=== PATIENT | female | born 1945 | race Caucasian/White ===

== ENCOUNTER 2017-03-15 18:43 | Inpatient (IN) ==
[2017-03-15 19:08] LABS: MANUAL DIFF NEEDED? NO
[2017-03-15 19:09] LABS: BASO% 0.6 % (0.0-0.8); EOS# 0.14 X1000 (0.0-0.7); EOS% 2.2 % (0.0-10.0); HEMATOCRIT 44.2 % (37.0-47.0); HEMOGLOBIN 15.1 g/dL (12.0-16.0); IMM GRAN# 0.02 X1000 (0.0-0.04); IMM GRAN% 0.3 % (0.0-0.5); LYMPH# 1.46 X1000 (1.2-3.4); LYMPH% 22.6 % (20.5-51.1); MCH 33.5 PG (27-31); MCHC 34.2 g/dL (33-37); MONO# 0.85 X1000 (0.11-0.59); MONO% 13.2 % (1.7-9.3); MPV 9.5 FL (7.4-10.4); NEUT% 61.1 % (42.2-75.2); PLT 232 X1000 (130-400); RBC 4.51 XMIL (4.2-5.4)
[2017-03-15] MEDS ORDERED: MORPHINE IV ONE (19:21)
[2017-03-15] MEDS ORDERED: ZOFRAN IV ONE (19:22)
[2017-03-15 19:28] LABS: AGAP 15; ALKALINE PHOSPHATASE 100 U/L (32-104); AMYLASE 45 U/L (20-200); BUN 17 mg/dL (8-22); CALCIUM 9.5 mg/dL (8.8-10.2); CHLORIDE 100 mmol/L (98-107); CK PROFILE 54 U/L (24-173); COSMO 284; GOT 25 U/L (10-30); GPT 18 U/L (10-36); LIPASE 36 U/L (13-60); SODIUM 141 mmol/L (136-145); TCO2 26 mmol/L (25-35); TOTAL BILIRUBIN 0.41 mg/dL (0.20-1.00); TOTAL PROTEIN 7.1 g/dL (6.3-8.3)
[2017-03-15 20:22] LABS: ALLEN TEST YES; BE 4.5 mmoll (-3.0-3.0); BLOOD TYPE ARTERIAL; DRAW SITE R RADIAL; O2(CT) 18.7 mL/dL (15.0-23.0); PCO2(98.6) 31 mmHg (35-45); PO2(98.6) 83 mmHg (60-100); SAMPLE BLOOD; SAO2 98.7 % (95.0-100.0); THB 13.8 g/dL (11.5-17.4); pH(98.6) 7.54 (7.35-7.45)
[2017-03-15 20:23] LABS: MODALITY CANNULA
--- NOTE | 2017-03-15 20:23 | Diag Imaging Result Doc PS360 ---
CT ABD/PELVIS W/ IV CONT ONLY - 03/15/2017 INDICATION: acute abdomen TECHNIQUE: A CT dose reduction protocol was used. COMPARISON: None FINDINGS: The lung bases are clear. There is a moderately large hiatal hernia behind the heart. There are pacemaker leads in the heart. The liver, gallbladder, spleen, pancreas, adrenals, and kidneys are normal. There is a right inguinal hernia containing a few loops of small bowel. These are somewhat dilated and there is some solid feces in the small bowel at this point. No significant bowel wall thickening or inflammation. There is mild constipation in the proximal colon. Normal appendix. No free air or free fluid. Urinary bladder and rectum are normal. There are moderate degenerative changes of the spine. No acute or suspicious bony lesion. IMPRESSION: 1. Right inguinal hernia containing a few loops of small bowel that are slightly abnormally dilated with some feces consistent with delayed transit, indicating partial obstruction at this time. No full blown small bowel obstruction overall. 2. Constipation. 3. Rather large hiatal hernia. Electronically signed by Jabier Dinh 03/15/2017 8:21 PM
--- NOTE | 2017-03-15 20:27 | Diag Imaging Result Doc PS360 ---
CHEST-PORTABLE - 03/15/2017 INDICATION: abd pain TECHNIQUE: COMPARISON: 10/10/2012 FINDINGS: Stable left-sided pacemaker. The lungs are clear. Heart size and pulmonary vascularity is normal. No pneumothorax or pleural effusion. IMPRESSION: No acute disease or change from prior. Electronically signed by Jabier Dinh 03/15/2017 8:25 PM
[2017-03-15 20:59] LABS: URINE MICRO REVIEW NEEDED? NO; URINE SOURCE CLEAN CATCH
[2017-03-15 21:06] LABS: BILIRUBIN URINE NEGATIVE (NEGATIVE); BLOOD URINE NEGATIVE (NEGATIVE); COLOR STRAW; GLUCOSE URINE NEGATIVE (NEGATIVE); LEUKOCYTES URINE SMALL (NEGATIVE); NITRITE URINE NEGATIVE (NEGATIVE); PROTEIN URINE NEGATIVE (NEGATIVE); SP GRAVITY URINE 1.018; TURBIDITY URINE CLEAR (CLEAR); UROBILINOGEN URINE NORMAL (NORMAL)
[2017-03-15 21:07] LABS: UR EPITHELIAL CELLS <10 /HPF (<10); URINE BACTERIA NEGATIVE /HPF; URINE CULTURE NEEDED? YES; URINE RBC <10 /HPF (<10)
[2017-03-15] MEDS ORDERED: NS 500 ML IV ONE (22:18)
[2017-03-15] MEDS ORDERED: NS 1,000 ML IV ONE (22:31)
[2017-03-15] MEDS ORDERED: FLEET ENEMA PR ONE (22:31)
[2017-03-15] MEDS ORDERED: TYLENOL PO PRN (22:31)
[2017-03-15] MEDS ORDERED: SODIUM CHLORIDE 0.9% INJ SCH (22:31)
[2017-03-15] MEDS ORDERED: ZOFRAN IV PRN (22:31)
[2017-03-15] MEDS: LOVENOX SUBQ SCH (23:08)
[2017-03-15] MEDS: DULCOLAX PR SCH (23:08)
[2017-03-15] MEDS: PROTONIX IV SCH (23:08)
[2017-03-16] MEDS: NS 1,000 ML IV SCH ×4 (01:25→20:18)
[2017-03-16] MEDS: MORPHINE IV PRN ×4 (01:36→19:26)
[2017-03-16] MEDS: DULCOLAX PR SCH ×2 (09:12→20:19)
--- NOTE | 2017-03-16 10:33 | Diag Imaging Result Doc PS360 ---
ABDOMEN FLAT/UPRIGHT - 03/16/2017 INDICATION: sbo TECHNIQUE: Two views COMPARISON: CT from yesterday FINDINGS: Stable pacemaker leads in the heart. Stable mild right hemidiaphragm elevation. Stable constipation primarily throughout the descending colon. No bowel obstruction or free air. There is excreted contrast in the kidneys and urinary bladder. IMPRESSION: Constipation. No acute disease. Electronically signed by Jabier Dinh 03/16/2017 10:30 AM
[2017-03-16] MEDS: PROTONIX IV SCH (20:18)
[2017-03-16] MEDS: LOVENOX SUBQ SCH (20:18)
[2017-03-17] MEDS: NS 1,000 ML IV SCH ×3 (00:18→15:16)
[2017-03-17] MEDS: LOVENOX SUBQ SCH ×2 (00:18→22:39)
[2017-03-17] MEDS: PROTONIX IV SCH (00:19)
[2017-03-17] MEDS: DULCOLAX PR SCH ×2 (11:44→22:37)
[2017-03-17] MEDS ORDERED: NORCO-5 PO PRN (16:07)
[2017-03-17] MEDS ORDERED: MORPHINE IM ONE (16:07)
[2017-03-17] MEDS ORDERED: ZOFRAN PO PRN (17:56)
[2017-03-18] MEDS: PROTONIX PO SCH ×2 (05:54→08:54)
[2017-03-18 06:44] LABS: AGAP 10; ALBUMIN 3.3 g/dL (3.5-5.0); ALKALINE PHOSPHATASE 71 U/L (32-104); BUN 11 mg/dL (8-22); CALCIUM 9.3 mg/dL (8.8-10.2); CHLORIDE 111 mmol/L (98-107); COSMO 288; GOT 19 U/L (10-30); GPT 15 U/L (10-36); MAGNESIUM 1.9 mg/dL (1.5-2.7); SODIUM 145 mmol/L (136-145); TCO2 24 mmol/L (25-35); TOTAL BILIRUBIN 0.69 mg/dL (0.20-1.00); TOTAL PROTEIN 5.8 g/dL (6.3-8.3)
[2017-03-18 06:59] LABS: FREE T4 1.16 ng/dL (0.93-1.70)
[2017-03-18] MEDS: DULCOLAX PR SCH (08:54)
[2017-03-18 11:23] VITALS: BP 156/66
[2017-03-18] MEDS ORDERED: POTASSIUM CHLORIDE 20% LIQUID PO ONE (12:46)
== END 2017-03-18 14:30 | disposition home or self-care (01) ==
LOC: ED 18:43 → SUATTDRO 22:06 → 4N 22:06
PROVIDERS: ATTEND Emergency Medicine